=== PATIENT | male | born 1955 | race Two or more races ===

== ENCOUNTER → 2024-09-23 | Outpatient (CLI) | payer MEDICAID, SELFPAY ==
[2024-09-23 10:54] LABS: Cardiac Risk Estimate 3.7 RATIO (4.0-6.7); Cholesterol 219 mg/dL (132-200); HDL Cholesterol 59 mg/dL (40-60); LDL Cholesterol,Calculated 133 mg/dL (0-130); Triglycerides 135 mg/dL (30-150)
== END | disposition home or self-care (01) ==
PROVIDERS: PCP Physician Assistant; Referring Provider Psychiatry & Neurology Neurology; Visit Provider Psychiatry & Neurology Neurology
DX: E78.5 Hyperlipidemia, unspecified (principal); I69.398 Other sequelae of cerebral infarction
CPT/HCPCS: 36415; 80061